=== PATIENT | female | born 1960 | race Caucasian/White ===

== ENCOUNTER 2022-04-21 06:50 | Inpatient (IN) | payer BC, OTHER ==
--- OUTSIDE RECORDS SUMMARY | 2022-04-21 06:53 | XMS REPORT | Continuity of Care Document ---
:1960 Author Organization [facility] t Address [address] [place] [address] Care Team Providers Name Role Phone Unavailable Unavailable Unavailable Payers Payer Name Policy Type Policy Number Effective Date Expiration Date S ource Problems This patient has no known problems. Allergies, Adverse Reactions, Alerts Allergy Allergy Status Severity Reaction(s) Onset Inactive Treating Comm ents Source Name Type Date Date Clinician No Known DA Active U 2020-0 [facility] 06-25 Clear s 00:00: Acharya 00 [facility] No Known DA Active U 2020-0 [facility] Allergie 06-25 Clear s 00:00: Acharya 00 [facility] Medications This patient has no known medications. Procedures This patient has no known procedures. Encounters Start End Encounter Admission Attending Care Care Encounter Source Date/Time Date/Time Type Type Clinicians Facility Department ID 2019-06-25 Inpatient [facility] [id number] [facility] 00:22:00 80 [facility] Results This patient has no known results.
--- NOTE | 2022-04-21 07:19 | EDPHYS ---
Physician Documentation [facility] Name: Rhiannon Varela Age: 61 yrs Sex: Female : 1960 Arrival Date: 04/21/2022 Time: 06:52 Bed 3 Private MD: ED Physician Ismael Pereira HPI: 04/21 07:00 This 61 yrs old Female presents to ER via EMS with complaints of Fever. sammy 07:00 The patient reports fever, that was measured at 103 degrees Fahrenheit. Onset: The sammy symptoms/episode began/occurred 3 day(s) ago. Modifying factors: there are no obvious modifying factors. Associated signs and symptoms: Pertinent positives: cough. Severity of symptoms: At their worst the symptoms were mild in the emergency department the symptoms are unchanged. The patient has experienced similar episodes in the past, a few times. Historical: - Allergies: 06:59 No Known Allergies; tw5 - Home Meds: 06:59 Keflex Oral [Active]; sulfamethoxazole [Active]; tw5 - PMHx: 06:59 Cellulitis; tw5 - PSHx: 06:59 None; tw5 - Immunization history:: Flu vaccine is up to date. - Social history:: Smoking status: Patient reports the use of cigarette tobacco products, smokes one-half pack cigarettes per day. ROS: 07:01 Eyes: Negative for injury, pain, redness, and discharge, ENT: Negative for injury, sammy pain, and discharge, Neck: Negative for injury, pain, and swelling, Cardiovascular: Negative for chest pain, palpitations, and edema, Abdomen/GI: Negative for abdominal pain, nausea, vomiting, diarrhea, and constipation, Back: Negative for injury and pain, : Negative for injury, bleeding, discharge, and swelling, MS/Extremity: Negative for injury and deformity, Skin: Negative for injury, rash, and discoloration, Neuro: Negative for headache, weakness, numbness, tingling, and seizure, Psych: Negative for depression, anxiety, suicide ideation, homicidal ideation, and hallucinations, Allergy/Immunology: Negative for hives, rash, and allergies, Endocrine: Negative for neck swelling, polydipsia, polyuria, polyphagia, and marked weight changes, Hematologic/Lymphatic: Negative for swollen nodes, abnormal bleeding, and unusual bruising. 07:01 Constitutional: Positive for fever. 07:01 Respiratory: Positive for cough, "sounds productive". Exam: 07:01 Constitutional: This is a well developed, well nourished patient who is awake, alert, sammy and in no acute distress. Head/Face: Normocephalic, atraumatic. Eyes: Pupils equal round and reactive to light, extra-ocular motions intact. Lids and lashes normal. Conjunctiva and sclera are non-icteric and not injected. Cornea within normal limits. Periorbital areas with no swelling, redness, or edema. ENT: Nares patent. No nasal discharge, no septal abnormalities noted. Tympanic membranes are normal and external auditory canals are clear. Oropharynx with no redness, swelling, or masses, exudates, or evidence of obstruction, uvula midline. Mucous membranes moist. Neck: Trachea midline, no thyromegaly or masses palpated, and no cervical lymphadenopathy. Supple, full range of motion without nuchal rigidity, or vertebral point tenderness. No Meningismus. Chest/axilla: Normal chest wall appearance and motion. Nontender with no deformity. No lesions are appreciated. Abdomen/GI: Soft, non-tender, with normal bowel sounds. No distension or tympany. No guarding or rebound. No evidence of tenderness throughout. Back: No spinal tenderness. No costovertebral tenderness. Full range of motion. Female : Normal external genitalia. Skin: Warm, dry with normal turgor. Normal color with no rashes, no lesions, and no evidence of cellulitis. MS/ Extremity: Pulses equal, no cyanosis. Neurovascular intact. Full, normal range of motion. Neuro: Awake and alert, GCS 15, oriented to person, place, time, and situation. Cranial nerves II-XII grossly intact. Motor strength 5/5 in all extremities. Sensory grossly intact. Cerebellar exam normal. Normal gait. Psych: Awake, alert, with orientation to person, place and time. Behavior, mood, and affect are within normal limits. 07:01 Cardiovascular: Rate: tachycardic, Rhythm: regular, Pulses: Pulses are 4+ in bilateral radial, brachial, femoral, popliteal, posterior tibial and and dorsalis pedis arteries.. Heart sounds: normal, Edema: is not appreciated, JVD: is not appreciated. 08:45 ECG was reviewed by the Attending Physician. [facility] Vital Signs: 06:53 BP 133 / 67; Pulse 113; Resp 22; Temp 103.3; Pulse Ox 98% on R/A; Weight 81.65 kg; tw5 Height 5 ft. 4 in. (162.56 cm); Pain 8/10; 08:00 BP 118 / 55; Pulse 110; Resp 17; Pulse Ox 93% on R/A; tw5 09:36 BP 97 / 69; Pulse 96; Resp 28; Temp 97.8; Pulse Ox 90% ; bp 11:23 BP 109 / 84; Pulse 85; Resp 16; Pulse Ox 91% ; bp 13:33 BP 114 / 48; Pulse 94; Resp 26; Pulse Ox 93% ; bp 06:53 Body Mass Index 30.90 (81.65 kg, 162.56 cm) tw5 MDM: 06:53 Patient medically screened. sammy 07:01 Antibiotic administration: Rocephin and Zithromax given. Differential diagnosis: Anemia sammy Anxiety Reaction asthma, Bronchitis CHF exacerbation, viral Infection, bacterial infection, URI, bronchitis, pneumonia UTI, gastroenteritis, meningitis. The patient's Wells Deep Vein Thrombosis Score was calculated as follows: Heart Rate >100 BPM (1.5 Pts) Total Score: 0-2 Pts- Low Risk. Differential Diagnosis: Bronchitis Influenza Upper Respiratory Infection Sinusitis Pharyngitis Otitis Media. The patient's pulmonary embolism risk score was calculated as follows: the patients heart rate is greater than 100 beats per minute (1.5 Pts) Total Score: 0-2 points. This patient was found to be at low risk for a pulmonary embolism by using the Well's assessment criteria. Immunization status: Influenza vaccine:. Data reviewed: vital signs, nurses notes, lab test result(s), EKG, radiologic studies, plain films. Data interpreted: security monitor: rate is 113 beats/min, rhythm is regular, Pulse oximetry: on room air is 98 %. Test interpretation: by ED physician or midlevel provider: ECG, plain radiologic studies. Counseling: I had a detailed discussion with the patient and/or guardian regarding: the historical points, exam findings, and any diagnostic results supporting the discharge/admit diagnosis, lab results, radiology results, the need for further work-up and treatment in the hospital. 04/21 06:59 Order name: Basic Metabolic Panel; Complete Time: 09:54 sammy 04/21 06:59 Order name: CBC with Diff; Complete Time: 09:54 [facility] 04/21 06:59 Order name: LFT's; Complete Time: 09:54 [facility] 04/21 06:59 Order name: Magnesium; Complete Time: 09:54 [facility] 04/21 06:59 Order name: NT PRO-BNP; Complete Time: 09:54 [facility] 04/21 06:59 Order name: PT-INR; Complete Time: 09:54 [facility] 04/21 06:59 Order name: Troponin HS; Complete Time: 09:54 [facility] 04/21 06:59 Order name: Blood Culture Adult (2) [facility] 04/21 06:59 Order name: Lactate w/ 2H reflex if indic.; Complete Time: 09:54 [facility] 04/21 06:59 Order name: COVID-19/FLU A+B; Complete Time: 09:54 [facility] 04/21 07:04 Order name: Strep; Complete Time: 08:45 04/21 08:21 Order name: Throat Culture [facility] 04/21 09:03 Order name: CBC with Automated Diff [facility] 04/21 09:03 Order name: CBC with Automated Diff [facility] 04/21 06:59 Order name: XRAY Chest (1 view); Complete Time: 09:54 [facility] 04/21 06:59 Order name: EKG; Complete Time: 07:00 [facility] 04/21 09:03 Order name: Comprehensive Metabolic Panel [facility] 04/21 09:03 Order name: Comprehensive Metabolic Panel [facility] 04/21 09:56 Order name: US Abdomen Limited [facility] 04/21 11:07 Order name: Acetaminophen Level; Complete Time: 11:17 [facility] 04/21 11:43 Order name: MRI; Complete Time: 13:06 [facility] 04/21 12:47 Order name: US; Complete Time: 13:06 [facility] 04/21 06:59 Order name: Cardiac monitoring; Complete Time: 08:05 [facility] 04/21 06:59 Order name: EKG - Nurse/Tech; Complete Time: 09:46 [facility] 04/21 06:59 Order name: IV Saline Lock; Complete Time: 08:05 [facility] 04/21 06:59 Order name: Labs collected and sent; Complete Time: 08:05 [facility] 04/21 06:59 Order name: O2 Per Protocol; Complete Time: 08:05 [facility] 04/21 06:59 Order name: O2 Sat Monitoring; Complete Time: 08:05 [facility] 04/21 08:00 Order name: Labs - recollect needed: recollect all the blood; Complete Time: 09:25 eb 04/21 09:03 Order name: Regular EDMS EC:45 Rate is 103 beats/min. Rhythm is regular. QRS [place] is Normal. AL interval is normal. sammy QRS interval is normal. QT interval is normal. No Q waves. T waves are Normal. No ST changes noted. Clinical impression: Sinus tachycardia. Interpreted by me. Reviewed by me. Administered Medications: 07:40 Drug: Tylenol 1000 mg Route: PO; tw5 09:35 Follow up: Response: No adverse reaction; Temperature is decreased bp 07:40 Drug: Benadryl (diphenhydrAMINE) 25 mg Route: IVP; Site: right hand; tw5 09:34 Follow up: Response: Marked relief of symptoms bp 07:40 Drug: SOLU-Medrol (methylPrednisoLONE) 125 mg Route: IVP; Site: right hand; tw5 09:35 Follow up: Response: No adverse reaction bp 07:40 Drug: NS 0.9% 1000 ml Route: IV; Rate: 1 bolus; Site: right hand; tw5 09:35 Follow up: IV Status: Completed infusion; IV Intake: 1000ml bp 07:40 Drug: NS 0.9% 1000 ml Route: IV; Rate: 1 bolus; Site: right hand; tw5 08:00 Drug: Rocephin (cefTRIAXone) 1 grams Route: IV; Rate: per protocol; Site: right hand; tw5 09:36 Follow up: IV Status: Completed infusion; IV Intake: 100ml bp 08:00 Drug: Pepcid (famotidine) 20 mg Route: IVP; Site: right hand; bp 09:35 Follow up: Response: No adverse reaction bp 08:00 Drug: Zithromax (azithromycin) 500 mg Route: IVPB; Infused Over: 1 hrs; Site: right tw5 hand; 09:35 Follow up: IV Status: Completed infusion; IV Intake: 250ml bp Disposition Summary: 04/21/22 07:18 Hospitalization Ordered Hospitalization Status: Observation sammy Provider: Yunior Del Castillo cha Location: Telemetry/MedSurg (observation) sammy Condition: Fair sammy Problem: new sammy Symptoms: have improved sammy Bed/Room Type: Standard sammy Room Assignment: 224(04/21/22 13:06) dw Diagnosis - Fever, unspecified sammy - Dehydration sammy - Adverse effect of unspecified drugs, medicaments and biological substances sammy - Acute upper respiratory infection, unspecified sammy Forms: - Medication Reconciliation Form sammy - SBAR form sammy Signatures: Dispatcher [employer] Dominique Aldridge RN RN dw Anderson, Corey, MD MD cha Peltier, Brian, RN RN bp Botello, Elizabeth eb Wood, Tiffany tw5 Corrections: (The following items were deleted from the chart) 07:04 07:04 Urine Strainer ordered. eb eb 13:06 07:18 sammy dw
--- NOTE | 2022-04-21 07:19 | ER ---
Nurse's Notes [facility] Name: Rhiannon Varela Age: 61 yrs Sex: Female : 1960 Arrival Date: 04/21/2022 Time: 06:52 Bed 3 Private MD: Diagnosis: Fever, unspecified;Dehydration;Adverse effect of unspecified drugs, medicaments and biological substances;Acute upper respiratory infection, unspecified Presentation: 04/21 06:53 Chief complaint:. Chief complaint: EMS states: "She has not been feeling well for a tw5 while. See was seen at [facility] on the 6th for cellulitis over her right eye. That seems to have cleared up. She was tested for everything else but she is still complaining of a fever.". Coronavirus screen: Vaccine status: Patient reports receiving the 2nd dose of the covid vaccine. Qriket. Ebola Screen: Patient negative for fever greater than or equal to 101.5 degrees Fahrenheit, and additional compatible Ebola Virus Disease symptoms Patient denies exposure to infectious person. Patient denies travel to an Ebola-affected area in the 21 days before illness onset. Initial Sepsis Screen: Does the patient meet any 2 criteria? Temp <36.0*C (96.8*F)) or > 38.3*C (100.9*F). HR > 90 bpm. Does the patient have a suspected source of infection? Yes: Skin breakdown/wound If YES to both, name of provider notified: Ismael Pereira MD Risk Assessment: Do you want to hurt yourself or someone else? Patient reports no desire to harm self or others. Onset of symptoms is unknown. 06:53 Method Of Arrival: EMS: [facility] tw5 06:53 Acuity: SERGE 2 tw5 Triage Assessment: 06:59 General: Appears uncomfortable, Behavior is cooperative, appropriate for age. Pain: tw5 Pain currently is 8 out of 10 on a pain scale. Derm: Rash noted that is red, raised, on chest, abdomen, right arm and left arm. Historical: - Allergies: 06:59 No Known Allergies; tw5 - Home Meds: 06:59 Keflex Oral [Active]; sulfamethoxazole [Active]; tw5 - PMHx: 06:59 Cellulitis; tw5 - PSHx: 06:59 None; tw5 - Immunization history:: Flu vaccine is up to date. - Social history:: Smoking status: Patient reports the use of cigarette tobacco products, smokes one-half pack cigarettes per day. Screenin:06 Abuse screen: Denies threats or abuse. Denies injuries from another. Nutritional tw5 screening: No deficits noted. Tuberculosis screening: No symptoms or risk factors identified. Fall Risk None identified. Assessment: 07:00 General: SEE TRIAGE NOTE. tw5 09:00 Reassessment: No changes from previously documented assessment. Patient and/or family bp updated on plan of care and expected duration. Pain level reassessed. 11:23 Reassessment: ADMIT IN PROCESS. bp 13:34 Reassessment: BED ASSIGNED, TRANSPORT PENDING. bp Vital Signs: 06:53 BP 133 / 67; Pulse 113; Resp 22; Temp 103.3; Pulse Ox 98% on R/A; Weight 81.65 kg; tw5 Height 5 ft. 4 in. (162.56 cm); Pain 8/10; 08:00 BP 118 / 55; Pulse 110; Resp 17; Pulse Ox 93% on R/A; tw5 09:36 BP 97 / 69; Pulse 96; Resp 28; Temp 97.8; Pulse Ox 90% ; bp 11:23 BP 109 / 84; Pulse 85; Resp 16; Pulse Ox 91% ; bp 13:33 BP 114 / 48; Pulse 94; Resp 26; Pulse Ox 93% ; bp 06:53 Body Mass Index 30.90 (81.65 kg, 162.56 cm) tw5 ED Course: 06:52 Patient arrived in ED. tw5 06:53 Ismael Pereira MD is Attending Physician. sammy 06:59 Triage completed. tw5 06:59 Arm band placed on Patient placed in an exam room. tw5 07:15 Yahaira Davies MD is Hospitalizing Provider. sammy 07:18 Yunior Del Castillo is Hospitalizing Provider. sammy 07:40 Inserted saline lock: 22 gauge in right hand, using aseptic technique. Blood collected. tw5 07:44 Milagro Mitchell is Primary Nurse. tw5 08:06 Patient has correct armband on for positive identification. Bed in low position. Call tw5 light in reach. Side rails up X2. 08:09 Primary Nurse role handed off by Milagro Mitchell bp 08:09 Meek Lynch, RN is Primary Nurse. bp 08:15 XRAY Chest (1 view) In Process Unspecified. EDMS 13:34 No provider procedures requiring assistance completed. Patient admitted, IV remains in bp place. Administered Medications: 07:40 Drug: Tylenol 1000 mg Route: PO; tw5 09:35 Follow up: Response: No adverse reaction; Temperature is decreased bp 07:40 Drug: Benadryl (diphenhydrAMINE) 25 mg Route: IVP; Site: right hand; tw5 09:34 Follow up: Response: Marked relief of symptoms bp 07:40 Drug: SOLU-Medrol (methylPrednisoLONE) 125 mg Route: IVP; Site: right hand; tw5 09:35 Follow up: Response: No adverse reaction bp 07:40 Drug: NS 0.9% 1000 ml Route: IV; Rate: 1 bolus; Site: right hand; tw5 09:35 Follow up: IV Status: Completed infusion; IV Intake: 1000ml bp 07:40 Drug: NS 0.9% 1000 ml Route: IV; Rate: 1 bolus; Site: right hand; tw5 08:00 Drug: Rocephin (cefTRIAXone) 1 grams Route: IV; Rate: per protocol; Site: right hand; tw5 09:36 Follow up: IV Status: Completed infusion; IV Intake: 100ml bp 08:00 Drug: Pepcid (famotidine) 20 mg Route: IVP; Site: right hand; bp 09:35 Follow up: Response: No adverse reaction bp 08:00 Drug: Zithromax (azithromycin) 500 mg Route: IVPB; Infused Over: 1 hrs; Site: right tw5 hand; 09:35 Follow up: IV Status: Completed infusion; IV Intake: 250ml bp Medication: 13:34 VIS not applicable for this client. bp Intake: 09:35 IV: 1000ml; Total: 1000ml. bp 09:35 IV: 250ml; Total: 1250ml. bp 09:36 IV: 100ml; Total: 1350ml. bp Outcome: 07:18 Decision to Hospitalize by Provider. sammy 13:43 Admitted to Med/surg accompanied by tech, via wheelchair, room 224, with chart, Report bp called to JAIMIE RN 13:43 Condition: stable 13:43 Instructed on the need for admit. 14:49 Patient left the ED. bp Signatures: Dispatcher [employer] Ismael Fernandez MD MD cha Peltier, Brian, RN RN Milagro Su tw5 Corrections: (The following items were deleted from the chart) 08:05 07:40 Zithromax (azithromycin) 500 mg IVPB in right hand over 1 hrs tw5 tw5
[2022-04-21] MEDS ORDERED: METHYLPREDNISOLONE 125 MG INJ ONE (07:49)
[2022-04-21] MEDS ORDERED: DIPHENHYDRAMINE 50 MG/ML VIAL ONE (07:49)
[2022-04-21] MEDS ORDERED: AZITHROMYCIN 500 MG INJ IVPB ONE (07:50)
[2022-04-21] MEDS ORDERED: ACETAMINOPHEN 500 MG TAB ONE (07:50)
[2022-04-21] MEDS ORDERED: NA CHLORIDE 0.9% 2,000 ML ONE (07:50)
[2022-04-21] MEDS ORDERED: CEFTRIAXONE 1000 MG/VIAL ONE (07:50)
[2022-04-21 08:48] LABS: Absolute Lymphocytes (CBC) 0.5 K/uL (0.7-4.9); Hematocrit 38.4 % (36.0-45.0); Lymphocytes % 4.5 % (15.3-44.8); MCV 85.8 fL (80-100); MPV 7.8 fL (7.6-11.3); RBC Red Blood Cell Count 4.48 M/uL (3.86-4.86)
[2022-04-21 08:48] LABS: SARS-COV-2 RT PCR NEGATIVE (NEGATIVE)
--- NOTE | 2022-04-21 08:51 | RAD REPORT ---
EXAM DESCRIPTION: RAD - Chest Single View - 04/21/2022 8:14 am CLINICAL HISTORY: COUGH COMPARISON: None TECHNIQUE: AP portable chest image was obtained 04/21/2022 8:14 am . FINDINGS: No focal consolidation to suspect bacterial pneumonia. Inspiratory effort is shallow. This accentuates the lung parenchymal pattern potentially masking a mild interstitial edema or interstiti al infiltrate. Heart and vasculature are normal. No measurable pleural effusion and no pneumothorax. No acute bony abnormality seen. No acute aortic findings suspected. IMPRESSION: No focal lung parenchymal process to suspect bacterial pneumonia. Prominent interstitial pattern is probably artifact of shallow inspiration portable imaging. A mild i nterstitial edema or infiltrate is possible.
[2022-04-21 08:56] LABS: Protime INR 1.35
[2022-04-21] MEDS ORDERED: ACETAMINOPHEN 500 MG TAB PO PRN (08:58)
[2022-04-21] MEDS ORDERED: ALBUTEROL 2.5 MG/3 ML NEB SOL NEB PRN ×2 (08:58→14:00)
[2022-04-21] MEDS: D5 0.45 NS 1,000 ML IV SCH ×2 (09:00→16:00)
[2022-04-21] MEDS: METHYLPREDNISOLONE 40 MG INJ IV SCH ×2 (09:00→16:00)
[2022-04-21 09:15] LABS: Albumin 2.6 g/dL (3.4-5.0); Bilirubin Direct 0.4 mg/dL (0-0.2); Bilirubin Total 0.7 mg/dL (0.2-1.0); Magnesium 1.6 mg/dL (1.8-2.4); Potassium 3.9 mmol/L (3.5-5.1); Protein, Total 6.6 g/dL (6.4-8.2); Troponin High Sensitivity 5.1 pg/mL (<58.9)
[2022-04-21] MEDS ORDERED: FAMOTIDINE 20 MG/2 ML VIAL IV ONE (09:29)
--- NOTE | 2022-04-21 09:52 | P.HP ---
Certification for Inpatient Patient admitted to: Observation With expected LOS: <2 Midnights Practitioner: I am a practitioner with admitting privileges, knowledge of patient current condition, hospital course, and medical plan of care. Services: Services provided to patient in accordance with Admission requirements found in Title 42 Section 412.3 of the Code of Federal Regulations Patient History Date of Service: 04/21/22 Reason for admission: Weakness fever and rash History of Present Illness: Patient is 61 years of age she does not have a regular doctor admitted with fev er rash weakness gait instability apparently she went to [facility] emergency room was diagnosed with a cellulitis was treated with Keflex and Bactrim helped severe rash on her torso and it appeared in the hospital she denies any pulmonary complaints no urinary symptoms or abdominal complaints had some fever Allergies No Known Allergies Allergy (Unverified 04/21/22 09:16) - Past Medical/Surgical History Past Medical History: Reviewed- Non-Contributory -: Cellulitis Past Surgical History: Reviewed- Non-Contributory - Social History Smoking Status: Current every day smoker Counseled patient to stop smoking for: less than 10 minutes Smoking therapy provided: No Alcohol use: No Review of Systems General: Weakness Integumentary: Rash Physical Examination - Vital Signs Temperature: 103.3 F Blood Pressure: 133/67 Pulse: 113 Respirations: 22 Pulse Ox (%): 98 - Physical Exam General: Alert, Mild distress HEENT: Other Respiratory: Clear to auscultation bilaterally, Diminished Cardiovascular: No edema, Regular rate/rhythm, Normal S1 S2 Integumentary: Rash(es) (Diffuse erythematous rash on her torso) Neurological: Normal speech, Cranial nerves 3-12 intact - Studies Laboratory Data (last 24 hrs) 04/21/22 08:39: PT 14.8 H, INR 1.35 04/21/22 08:39: WBC 12.00 H, Hgb 12.9, Hct 38.4, Plt Count 289 04/21/22 08:39: Sodium 129 L, Potassium 3.9, BUN 14, Creatinine 0.96, Glucose 219 H, Magnesium 1.6 L, Total Bilirubin 0.7, AST 230 H, ALT 177 H, Alkaline Phosphatase 213 H Microbiology Data (last 24 hrs): 04/21/22 07:40 Throat Group A Streptococcus Rapid Screen - Final Assessment and Plan - Problems (Diagnosis) (1) Drug reaction Current Visit: Yes Status: Acute Plan: Patient is 61 years of age admitted with fever and rash he has diffuse erythematous rash on her torso feels very weak mild hyponatremia chest x-ray minimal interstitial changes patient is an active smoker no family physician abnormal liver function test Qualifiers: Encounter type: initial encounter Qualified Code(s): T50.905A - Adverse effect of unspecified drugs, medicaments and biological substances, initial encounter (2) Abnormal liver function test Current Visit: Yes Status: Acute Plan: Plan to order an ultrasound of the liver hepatitis profile doubly has underlying fatty liver urine drug screen - Advance Directives Does patient have a Living Will: No Does patient have a Durable POA for Healthcare: No
[2022-04-21] MEDS: THIAMINE 200 MG/2 ML INJ IVP SCH ×2 (09:53→20:32)
--- NOTE | 2022-04-21 11:43 | RAD REPORT ---
EXAM DESCRIPTION: MRI - Cholangiogram - 04/21/2022 11:31 am CLINICAL HISTORY: fever/ abd pain COMPARISON: No comparisons FINDINGS: Three-dimensional MRCP was performed using maximum intensity projection reconstruction on the same work station. Cholecystectomy. The extrahepatic common bile duct measures 7 millimeters. No evidence of choledochol ithiasis. No strictures are seen. No pancreatic ductal dilatation or masses are identified. No hydronephrosis. Liver is unremarkable. The spleen is unremarkable. No retroperitoneal lymphadenopa thy. No hydronephrosis. Limited T2 sequences through the abdomen demonstrates no bulky adenopathy, significant free fluid or abscess. IMPRESSION: Cholecystectomy. Mild extrahepatic biliary ductal dilatation is presumably related to th e postcholecystectomy state. No evidence of choledocholithiasis.
--- NOTE | 2022-04-21 12:47 | RAD REPORT ---
EXAM DESCRIPTION: US - Abdomen Exam Complete - 04/21/2022 12:32 pm CLINICAL HISTORY: Abnormal liver function test COMPARISON: Cholangiogram dated 04/21/2022 FINDINGS: Patient is far remote from cholecystectomy. No abnormal fluid collection in the gallbladde r fossa. Common bile duct is normal with no common duct stone identified. Liver shows a coarsened, increased parenchymal echogenicity typically seen with diffuse fatty infiltr ation. No focal liver lesion. Doppler evaluation shows no portal vein abnormality. No splenomegaly or focal splenic finding. Liver is 16 cm in maximum dimension. Spleen is 12 cm in maximum dimension. The pancreas is grossly normal but partially obscured by bowel. No hydronephrosis or suspicious mass in either kidney. Aorta and IVC show no significant finding. No ascites or bulky lymphadenopathy. IMPRESSION: Status post cholecystectomy with no abnormal biliary tree dilatation. Diffuse fatty infiltration of a normal size liver. No focal liver lesion. Pancreas is grossly normal but partially obscured by bowel.
[2022-04-21 15:19] VITALS: BMI 30.9
[2022-04-21 23:19] LABS: Specific Gravity 1.028 (1.005-1.030); Urine Bilirubin NEGATIVE (Negative); Urine Blood Negative (Negative); Urine Clarity Clear (Clear); Urine Color Colorless (Yellow); Urine Glucose 4+ (Over) (Negative); Urine Protein NEGATIVE (Negative); Urine Urobilinogen Normal (Normal)
[2022-04-21 23:24] LABS: Barbiturates NEGATIVE (NEGATIVE); Benzodiazepines NEGATIVE (NEGATIVE); Cocaine NEGATIVE (NEGATIVE); METHAMPHETAM NEGATIVE (NEGATIVE); Methadone NEGATIVE (NEGATIVE); Opiates NEGATIVE (NEGATIVE); Phencyclidine NEGATIVE (NEGATIVE); THC Cannibis NEGATIVE (NEGATIVE)
[2022-04-22] MEDS: METHYLPREDNISOLONE 40 MG INJ IV SCH ×3 (00:49→16:55)
[2022-04-22] MEDS: D5 0.45 NS 1,000 ML IV SCH (00:49)
[2022-04-22 03:40] LABS: MPV 8.4 fL (7.6-11.3); RBC Red Blood Cell Count 4.14 M/uL (3.86-4.86)
[2022-04-22 03:56] LABS: Albumin 2.6 g/dL (3.4-5.0); Bilirubin Total 0.4 mg/dL (0.2-1.0); Potassium 3.9 mmol/L (3.5-5.1); Protein, Total 6.5 g/dL (6.4-8.2)
[2022-04-22] MEDS ORDERED: GLUCAGON 1 MG/VIAL IM PRN ×2 (04:48→19:58)
[2022-04-22] MEDS ORDERED: D50W 25 GM/50 ML SYRINGE IV PRN ×2 (04:48→19:58)
[2022-04-22] MEDS ORDERED: D10W 125 ML IV PRN ×2 (05:07→20:16)
[2022-04-22] MEDS: INSULIN -REGULAR HUMAN 50 UNIT/0.5 ML ML SQ SCH ×5 (05:13→20:20)
[2022-04-22] MEDS: Ringers Lactate 1,000 ML IV SCH ×2 (05:13→16:55)
[2022-04-22] MEDS: THIAMINE 200 MG/2 ML INJ IVP SCH (08:02)
[2022-04-22] MEDS: INSULIN GLARGINE 100 UNIT/ML SQ SCH (09:08)
[2022-04-22 09:25] LABS: Albumin 2.6 g/dL (3.4-5.0); Bilirubin Total 0.4 mg/dL (0.2-1.0); Potassium 3.7 mmol/L (3.5-5.1); Protein, Total 6.6 g/dL (6.4-8.2)
--- NOTE | 2022-04-22 11:56 | P.PN ---
Subjective Date of Service: 04/22/22 Chief Complaint: Weakness fever and rash Patient reports feeling much better today. No change in erythematous rash on her trunk. She denies any pain. Her blood sugar is markedly elevated. Physical Examination - Vital Signs Temperature: 97.9 F Blood Pressure: 107/54 Pulse: 71 Respirations: 16 Pulse Ox (%): 94 - Studies Microbiology Data (last 24 hrs): 04/21/22 07:40 Throat Group A Streptococcus Rapid Screen - Final Assessment And Plan - Current Problems (Diagnosis) (1) Drug reaction Current Visit: Yes Status: Acute Qualifiers: Encounter type: initial encounter Qualified Code(s): T50.905A - Adverse effect of unspecified drugs, medicaments and biological substances, initial encounter (2) Type 2 diabetes mellitus with hyperglycemia Current Visit: Yes Status: Acute (3) Abnormal liver function test Current Visit: Yes Status: Acute - Plan No change in erythematous rash. Nonpruritic unless patient scratches. Patient with steroid-induced hyperglycemia. Newly diagnosed diabetes. She was getting antibiotics for right periorbital cellulitis-Bactrim and Keflex. Drug reaction likely secondary to Bactrim. Orbital cellulitis resolved. Normal antibiotics for now. Continue steroid. Start the Lantus insulin and insulin sliding scale for steroid-induced hyperglycemia. Titrate Lantus insulin. Check hemoglobin A1c.
--- NOTE | 2022-04-22 19:18 | EKG ---
Test Date: 2022-04-20 Test Time: 13:23:48 [employer]er: ER MEASUREMENT RESULTS: Intervals: Rate: 91 LA: 158 QRSD: 88 QT: 376 QTc: 462 [place]: P: 84 LA: 158 QRS: -2 T: 86 INTERPRETIVE STATEMENTS: Normal sinus rhythm Possible Anterior infarct, age undetermined Abnormal ECG No previous ECG available for comparison Electronically Signed On 04-22-22 19:11:02 [employer]IONER by Choco Madrid
[2022-04-22] MEDS ORDERED: INSULIN -REGULAR HUMAN 50 UNIT/0.5 ML ML IV ONE (19:40)
[2022-04-22] MEDS: THIAMINE HCL 100 MG TABLET PO SCH (20:19)
[2022-04-23] MEDS: METHYLPREDNISOLONE 40 MG INJ IV SCH ×2 (00:39→08:48)
[2022-04-23] MEDS ORDERED: MUCINEX DM 12HR.SR TAB PO PRN (00:47)
[2022-04-23] MEDS: Ringers Lactate 1,000 ML IV SCH (01:16)
[2022-04-23 03:06] VITALS: O2SAT 98
[2022-04-23] MEDS: INSULIN -REGULAR HUMAN 50 UNIT/0.5 ML ML SQ SCH (07:30)
[2022-04-23 08:08] LABS: Albumin 2.5 g/dL (3.4-5.0); Bilirubin Total 0.3 mg/dL (0.2-1.0); Potassium 4.3 mmol/L (3.5-5.1); Protein, Total 6.2 g/dL (6.4-8.2)
--- NOTE | 2022-04-23 08:28 | P.DS ---
Admission Date: 04/21/22 Discharge Date: 04/23/22 Disposition: ROUTINE DISCHARGE Discharge Condition: FAIR Reason for Admission: Weakness fever and rash - Problems (1) Drug reaction Current Visit: Yes Status: Acute Qualifiers: Encounter type: initial encounter Qualified Code(s): T50.905A - Adverse effect of unspecified drugs, medicaments and biological substances, initial encounter (2) Type 2 diabetes mellitus with hyperglycemia Current Visit: Yes Status: Acute (3) Abnormal liver function test Current Visit: Yes Status: Acute Brief History of Present Illness: 61 years woman with no known medical problems, not on any chronic medication, took Keflex and Bactrim for right orbital cellulitis. She developed red rash all over her trunk, associated with fever. Patient presented to the emergency department for further evaluation. Blood work done in the emergency department was significant for mild leukocytosis, hyponatremia and hyperglycemia. Liver enzymes also elevated. US liver unremarkable. Patient was admitted for further management. Hospital Course: Patient admitted to the medical floor and treated with IV steroid and supportive measures for drug reaction. I suspect the culprit drug to be Bactrim. MRCP was done to further evaluate the elevated liver enzymes and was unremarkable except mildly dilated CBD. Hepatitis profile ordered and the result is pending. She is postcholecystectomy. She developed severe hyperglycemia likely steroid-induced. Hemoglobin A1c was 8.7 indicating baseline diabetes mellitus type 2. Hyperglycemia was managed with Lantus insulin and insulin sliding scale. Patient tolerated diet and was ambulatory. Vitals are stable. Patient is deemed clinically stable for discharge. Vital Signs/Physical Exam: Temp Pulse Resp BP Pulse Ox 97.8 F 56 17 141/73 H 92 04/23/22 04:00 04/23/22 04:00 04/23/22 04:00 04/23/22 04:00 04/23/22 04:00 General: Alert, In no apparent distress, Oriented x3 HEENT: Mucous membr. moist/pink Neck: JVD not distended Respiratory: Clear to auscultation bilaterally, Normal air movement Cardiovascular: No edema, Regular rate/rhythm, Normal S1 S2 Gastrointestinal: Normal bowel sounds, Soft and benign, Non-distended, No tenderness Integumentary: Other (Erythematous rashes on trunk) Neurological: Normal strength at 5/5 x4 extr Laboratory Data at Discharge: WBC 9.70 K/uL (4.3-10.9) 04/22/22 03:22 Hgb 12.2 g/dL (12.0-15.0) 04/22/22 03:22 Hct 36.0 % (36.0-45.0) 04/22/22 03:22 Plt Count 285 K/uL (152-406) 04/22/22 03:22 PT 14.8 SECONDS (9.5-12.5) H 04/21/22 08:39 INR 1.35 04/21/22 08:39 Sodium 134 mmol/L (136-145) L 04/23/22 07:21 Potassium 4.3 mmol/L (3.5-5.1) D 04/23/22 07:21 BUN 21 mg/dL (7-18) H 04/23/22 07:21 Creatinine 0.74 mg/dL (0.55-1.3) 04/23/22 07:21 Glucose 322 mg/dL (74-106) H 04/23/22 07:21 Magnesium 1.6 mg/dL (1.8-2.4) L 04/21/22 08:39 Total Bilirubin 0.3 mg/dL (0.2-1.0) 04/23/22 07:21 AST 36 U/L (15-37) 04/23/22 07:21 ALT 102 U/L (12-78) H 04/23/22 07:21 Alkaline Phosphatase 143 U/L (45-117) H D 04/23/22 07:21 Home Medications: Diphenhydramine [Benadryl Tab/Cap] 25 mg PO Q6HP PRN #30 tab 04/23/22 Metformin HCl 500 mg PO BID #60 tab 04/23/22 predniSONE [Deltasone*] 10 mg PO DAILY #5 tab 04/23/22 New Medications: Diphenhydramine [Benadryl Tab/Cap] 25 mg PO Q6HP PRN #30 tab PRN Reason: Itching predniSONE [Deltasone*] 10 mg PO DAILY #5 tab Metformin HCl 500 mg PO BID #60 tab Diet: ADA Activity: Ad digna Followup: NONE,NONE [Primary Care Provider] - 1 Week Time spent managing pt's care (in minutes): 35
[2022-04-23] MEDS: INSULIN GLARGINE 100 UNIT/ML SQ SCH (08:47)
[2022-04-23] MEDS: THIAMINE HCL 100 MG TABLET PO SCH (08:48)
[2022-04-23 09:02] VITALS: BP 143/74; TEMP 97.2
--- NOTE | 2022-04-24 15:37 | EKG ---
Test Date: 2022-04-21 Test Time: 08:36:26 Damper Fitter: EBONY MEASUREMENT RESULTS: Intervals: Rate: 103 [place]: 132 QRSD: 94 QT: 356 QTc: 466 [place]: P: 61 [place]: 132 QRS: 68 T: 36 INTERPRETIVE STATEMENTS: Sinus tachycardia Otherwise normal ECG Compared to ECG 04/20/2022 13:23:48 Sinus rhythm no longer present Myocardial infarct finding no longer present Electronically Signed On 04-24-22 15:32:05 [employer] PROCESSING TECH by Natalio Wagner
[2022-04-25 02:45] LABS: HBsAG Nonreactive (Nonreactive)
== END 2022-04-23 11:15 | disposition home or self-care (01) | DRG 607 ==
LOC: ER 06:50 → OBSVTOIN 09:07 → ERHOLD 09:07 → 2ND 14:24
PROVIDERS: ADMIT Internal Medicine; ATTEND Internal Medicine
DX: L27.0 Generalized skin eruption due to drugs and medicaments taken internally (principal); L03.213 Periorbital cellulitis; E87.1 Hypo-osmolality and hyponatremia; E11.65 Type 2 diabetes mellitus with hyperglycemia; E86.0 Dehydration; J06.9 Acute upper respiratory infection, unspecified; D72.829 Elevated white blood cell count, unspecified; F17.210 Nicotine dependence, cigarettes, uncomplicated; R94.5 Abnormal results of liver function studies; R50.9 Fever, unspecified; T36.8X5A Adverse effect of other systemic antibiotics, initial encounter; Z79.84 Long term (current) use of oral hypoglycemic drugs; Z79.52 Long term (current) use of systemic steroids; Z79.899 Other long term (current) drug therapy; Z20.822 Contact with and (suspected) exposure to COVID-19
CPT/HCPCS: 0240U; 36415; 71045; 74181; 76700; 80048; 80053; 80074; 80076; 80307; 80329; 81003; 82947; 83036; 83605; 83735; 83880; 84484; 85025; 85610; 87040; 87070; 87081; 93005; 96365; 96366; 96368; 96375; 99285; J0456; J1200; J1815; J2920; J2930; J3411; J7030; J7120; J7799